=== PATIENT | male | born 1955 | race Two or more races ===

== ENCOUNTER 2018-01-19 08:15 | Inpatient (IN) | payer OTHER ==
[~2018-01-19] VITALS: Ht 182.9 cm; Wt 95.4 kg
[2018-01-19 09:41] LABS: BASOPHIL % 0.7 % (0-2); PLATELET COUNT 246 x10^3mcL (130-400)
[2018-01-19 09:44] LABS: RED CELL DISTRIBUTION WIDTH 14.8 % (11.5-14.5)
[2018-01-19 09:48] LABS: microscopic required? YES; urine erythrocyte TRACE (NEGATIVE)
[2018-01-19 10:16] LABS: ALBUMIN 4.1 g/dL (3.4-5.0); BILIRUBIN TOTAL 0.2 mg/dL (0.20-1.00); CALCIUM 9.2 mg/dL (8.5-10.1); CARBON DIOXIDE 21.4 mmol/L (21-32); POTASSIUM SERUM 5.3 mmol/L (3.5-5.1)
[2018-01-19 10:18] LABS: TOTAL PROTEIN, SERUM 9.2 g/dL (6.4-8.2)
[2018-01-19] MEDS ORDERED: GEODON20 MG (11:58)
[2018-01-19] MEDS ORDERED: METFORMIN500 M1 (11:59)
[2018-01-19] MEDS ORDERED: LANTUS SOLOS100 U/M1 (11:59)
[2018-01-19] MEDS ORDERED: ALLOPURINOL100 MG (11:59)
[2018-01-19] MEDS ORDERED: GLIPIZIDE2.5 M1 (11:59)
[2018-01-19 13:03] LABS: AMPHETAMINE QUAL UR NONE DETECTED (NEG <=1000)
[2018-01-19 13:20] LABS: MAGNESIUM 1.6 mg/dL (1.8-2.4); PHOSPHOROUS 4.1 mg/dL (2.5-4.9)
[2018-01-19 13:26] VITALS: BP 126/72
[2018-01-19 13:48] LABS: FREE T4 1.19 ng/dL (0.76-1.46); FREE THYROXINE INDEX 3.5 ug/dL (1.4-4.5); T4(THYROXINE) 9.1 ug/dL (4.7-13.3)
[2018-01-19 14:17] LABS: T3 TOTAL 0.74 ng/mL
[2018-01-19] MEDS ORDERED: NOR10 PO (14:17)
[2018-01-19] MEDS ORDERED: HYDROCHLOROTHIA25 MG PO (14:17)
[2018-01-19] MEDS ORDERED: ALLOPURINOL100 MG PO (14:18)
[2018-01-19] MEDS ORDERED: GEODON40 MG PO (14:18)
[2018-01-19] MEDS ORDERED: ASPIRIN ADULT L81 M5 PO (14:19)
[2018-01-19] MEDS ORDERED: LEVEMIR100 U/M1 SC (14:19)
[2018-01-19] MEDS ORDERED: GEMFIBROZIL600 MG PO (14:22)
[2018-01-19 17:14] LABS: CALCIUM 8.7 mg/dL (8.5-10.1); CARBON DIOXIDE 19.4 mmol/L (21-32); CREATININE SERUM 2.6 mg/dL (0.7-1.3)
[2018-01-19 17:25] VITALS: BP 158/71
[2018-01-19 17:25] LABS: POTASSIUM SERUM 5.7 mmol/L (3.5-5.1)
[2018-01-19 21:05] VITALS: BP 132/62
[2018-01-20 01:57] LABS: CALCIUM 8.5 mg/dL (8.5-10.1); CARBON DIOXIDE 18.8 mmol/L (21-32); CREATININE SERUM 2.5 mg/dL (0.7-1.3); POTASSIUM SERUM 5.4 mmol/L (3.5-5.1)
[2018-01-20 05:51] VITALS: BP 135/75
[2018-01-20 07:58] LABS: PLATELET COUNT 215 x10^3mcL (130-400)
[2018-01-20 08:01] LABS: RED CELL DISTRIBUTION WIDTH 14.6 % (11.5-14.5)
[2018-01-20 08:03] LABS: CALCIUM 8.4 mg/dL (8.5-10.1); CARBON DIOXIDE 19.4 mmol/L (21-32); CREATININE SERUM 2.7 mg/dL (0.7-1.3); POTASSIUM SERUM 5.3 mmol/L (3.5-5.1)
[2018-01-20 09:48] VITALS: BP 156/86
[2018-01-20 11:10] LABS: ATYPICAL LYMPH 4 %; BAND NEUTROPHIL 0 % (0-10); BASOPHIL 2 % (0-2); MONOCYTE 6 % (0-7); SEGMENTED NEUTROPHILS 57 % (37-75)
[2018-01-20 11:12] LABS: PLATELET MORPHOLOGY PLATELETS NORMAL; rbc morphology (normal/abnorm) ABNORMAL (NORMAL)
[2018-01-20 13:25] VITALS: BP 134/79
[2018-01-20 17:36] VITALS: BP 155/81
[2018-01-20 21:27] VITALS: BP 148/84
[2018-01-21 05:54] VITALS: BP 148/78
[2018-01-21 06:46] LABS: PLATELET COUNT 213 x10^3mcL (130-400)
[2018-01-21 07:16] VITALS: Ht 182.9 cm; Wt 95.4 kg
[2018-01-21 07:32] LABS: CALCIUM 8.6 mg/dL (8.5-10.1); CARBON DIOXIDE 19.1 mmol/L (21-32); CREATININE SERUM 2.3 mg/dL (0.7-1.3); POTASSIUM SERUM 5.3 mmol/L (3.5-5.1)
[2018-01-21 09:38] LABS: BAND NEUTROPHIL 0 % (0-10); BASOPHIL 1 % (0-2); MONOCYTE 9 % (0-7); SEGMENTED NEUTROPHILS 34 % (37-75)
[2018-01-21 09:39] LABS: PLATELET MORPHOLOGY PLATELETS DECREASED; rbc morphology (normal/abnorm) ABNORMAL (NORMAL)
[2018-01-21 09:45] VITALS: BP 151/77
[2018-01-21 13:00] VITALS: BP 144/92
[2018-01-21 13:34] LABS: CALCIUM 8.7 mg/dL (8.5-10.1); CARBON DIOXIDE 22.4 mmol/L (21-32); CREATININE SERUM 2.3 mg/dL (0.7-1.3); POTASSIUM SERUM 4.9 mmol/L (3.5-5.1)
[2018-01-21 17:32] VITALS: BP 154/83
[2018-01-21 21:07] VITALS: BP 145/72
[2018-01-22] VITALS (7 sets, daily range): BP systolic 113–178; BP diastolic 67–84
[2018-01-22 06:58] LABS: PLATELET COUNT 227 x10^3mcL (130-400)
[2018-01-22 06:59] LABS: RED CELL DISTRIBUTION WIDTH 14.8 % (11.5-14.5)
[2018-01-22 07:06] LABS: CALCIUM 8.7 mg/dL (8.5-10.1); CARBON DIOXIDE 21.8 mmol/L (21-32); CREATININE SERUM 2.2 mg/dL (0.7-1.3)
[2018-01-22 10:17] LABS: BAND NEUTROPHIL 1 % (0-10); BASOPHIL 0 % (0-2); MONOCYTE 4 % (0-7); SEGMENTED NEUTROPHILS 53 % (37-75)
[2018-01-23 05:24] VITALS: BP 154/84
[2018-01-23 07:05] LABS: CALCIUM 8.4 mg/dL (8.5-10.1); CARBON DIOXIDE 21.1 mmol/L (21-32); CREATININE SERUM 2.4 mg/dL (0.7-1.3); POTASSIUM SERUM 5.1 mmol/L (3.5-5.1)
[2018-01-23 10:09] VITALS: BP 146/88
[2018-01-23] MEDS ORDERED: APR10 PO (11:47)
[2018-01-23] MEDS ORDERED: L40 PO (11:48)
[2018-01-23] MEDS ORDERED: LEVEMIR100 U/M1 SC (11:48)
[2018-01-23] MEDS ORDERED: HIBICLENS118 ML TOP (11:49)
[2018-01-23] MEDS ORDERED: BACO TOP (11:49)
[2018-01-23 13:29] VITALS: BP 146/88
== END 2018-01-23 14:55 | disposition home or self-care (01) | DRG 469 ==
LOC: ED 08:15 → DU 12:05 → MU 01-22 17:55
PROVIDERS: Emergency Medicine; Family Medicine
DX: N17.0 Acute kidney failure with tubular necrosis (principal); G93.41 Metabolic encephalopathy; E11.51 Type 2 diabetes mellitus with diabetic peripheral angiopathy without gangrene; E11.22 Type 2 diabetes mellitus with diabetic chronic kidney disease; E87.5 Hyperkalemia; B35.1 Tinea unguium; I12.9 Hypertensive chronic kidney disease with stage 1 through stage 4 chronic kidney disease, or unspecified chronic kidney disease; E11.649 Type 2 diabetes mellitus with hypoglycemia without coma; D64.9 Anemia, unspecified; Z53.29 Procedure and treatment not carried out because of patient's decision for other reasons; N18.4 Chronic kidney disease, stage 4 (severe); E83.42 Hypomagnesemia; E78.00 Pure hypercholesterolemia, unspecified; Z88.0 Allergy status to penicillin; Z79.4 Long term (current) use of insulin; Z79.899 Other long term (current) drug therapy
CPT/HCPCS: 82962; 83880; 84439; 97110-GP; 97116-GP; 97530-GP; J1644; J1815; J3475; J7030; Q0092

== ENCOUNTER 2019-12-05 10:13 | Emergency (ER) | payer OTHER ==
[~2019-12-05 10:13] MED LIST: ALLOPURINOL100 MG; ALLOPURINOL100 MG PO; APR10 PO; ASPIRIN ADULT L81 M5 PO; BACO TOP; GEMFIBROZIL600 MG PO; GEODON20 MG; GEODON40 MG PO; GLIPIZIDE2.5 M1; HIBICLENS118 ML TOP; HYDROCHLOROTHIA25 MG PO; L40 PO; LANTUS SOLOS100 U/M1; LEVEMIR100 U/M1 SC; METFORMIN500 M1; NOR10 PO
[2019-12-05 12:17] VITALS: BP 129/63
== END 2019-12-05 12:17 | disposition home or self-care (01) ==
LOC: ED 10:13
DX: M79.671 Pain in right foot (principal); M79.672 Pain in left foot; E11.9 Type 2 diabetes mellitus without complications; I10 Essential (primary) hypertension; E78.00 Pure hypercholesterolemia, unspecified; Z88.0 Allergy status to penicillin

== ENCOUNTER 2019-12-25 10:49 | Emergency (ER) | payer OTHER ==
[~2019-12-25] VITALS: Ht 180.3 cm; Wt 90.7 kg
[2019-12-25 10:50] VITALS: BP 184/53; Ht 180.3 cm; Wt 90.7 kg
== END 2019-12-25 11:40 | disposition expired ==
LOC: ED 10:49
DX: I46.9 Cardiac arrest, cause unspecified (principal); I10 Essential (primary) hypertension; E11.9 Type 2 diabetes mellitus without complications; E78.00 Pure hypercholesterolemia, unspecified; Z88.0 Allergy status to penicillin
CPT/HCPCS: J7030